=== PATIENT | female | born 1975 | race Caucasian/White ===

== ENCOUNTER 2021-08-09 13:45 | Emergency (ER) | payer BC ==
[2021-08-09 14:00] VITALS: BP 126/88; PULSE 79; TEMP 98; BMI 21.9
[2021-08-09] MEDS ORDERED: PRESCRIPTION PAD 1 EACH EACH NR ONE (14:41)
== END 2021-08-09 14:50 | disposition home or self-care (01) ==
LOC: FER 13:45
DX: S86.911A Strain of unspecified muscle(s) and tendon(s) at lower leg level, right leg, initial encounter (principal); X50.9XXA Other and unspecified overexertion or strenuous movements or postures, initial encounter
CPT/HCPCS: 99281-25